=== PATIENT | male | born 1970 | race Caucasian/White ===

== ENCOUNTER 2018-08-12 20:56 | Emergency (ER) | payer MEDICAID ==
[~2018-08-12] VITALS: Ht 172.7 cm; Wt 63.2 kg
--- NOTE | 2018-08-12 21:20 | NUR ---
PT TO ROOM FROM LOBBY, PRESENTS TO ED WITH ANXIETY "MY HEART FEELS LIKE ITS GOING TO BEAT OUT OF MY CHEST". MD AT BEDSIDE
[2018-08-12] MEDS ORDERED: hydrOXyzine 50MG TABLET ONE (21:43)
[2018-08-12 21:45] VITALS: BP 94/47
--- NOTE | 2018-08-12 21:46 | NUR ---
PT SLEEPING IN [facility], WOKE PT TO GIVE ATARAX, TBDC
== END 2018-08-12 21:53 | disposition home or self-care (01) ==
LOC: ED 21:47
DX: F41.1 Generalized anxiety disorder (principal); F10.10 Alcohol abuse, uncomplicated; F17.210 Nicotine dependence, cigarettes, uncomplicated
CPT/HCPCS: 99284; Q0177